=== PATIENT | female | born 1970 | race Two or more races ===

== ENCOUNTER 2021-02-24 13:21 | Emergency (ER) | payer MEDICAID ==
[~2021-02-24] VITALS: Ht 149.9 cm; Wt 77.1 kg
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
[2021-02-24] MEDS ORDERED: IBUPROFEN 600 MG TABLET PO ONE (15:00)
[2021-02-24] MEDS ORDERED: IBUP-1955 PO (15:02)
[2021-02-24] MEDS ORDERED: IBUPROFEN 600 MG TABLET ONE (15:06)
[2021-02-24 15:10] VITALS: BP 178/70
--- NOTE | 2021-02-24 15:10 | NUR ---
Patient discharged to home in stable condition. Written and verbal after care instructions given. Patient verbalizes understanding of instruction.
== END 2021-02-24 15:11 | disposition home or self-care (01) ==
LOC: ER 13:23
DX: S39.012A Strain of muscle, fascia and tendon of lower back, initial encounter (principal); S80.01XA Contusion of right knee, initial encounter; R51.9 Headache, unspecified; I10 Essential (primary) hypertension; V32.5XXA Driver of three-wheeled motor vehicle injured in collision with two- or three-wheeled motor vehicle in traffic accident, initial encounter; Y93.89 Activity, other specified; Y92.413 State road as the place of occurrence of the external cause; Y99.8 Other external cause status
CPT/HCPCS: 72110-TC; 73564-TC